=== PATIENT | female | born 1980 | race Caucasian/White ===

== ENCOUNTER 2019-01-03 11:11 | Emergency (ER) | payer MEDICAID ==
[~2019-01-03] VITALS: Ht 167.6 cm; Wt 131.8 kg
[2019-01-03 11:26] VITALS: Ht 167.6 cm; Wt 131.8 kg
[2019-01-03] MEDS ORDERED: NORMODYNE / TR100 MG PO (11:27)
[2019-01-03] MEDS ORDERED: ALDOMET250 MG PO (15:42)
[2019-01-03 15:54] VITALS: BP 130/77
[2019-01-04] MEDS ORDERED: VISTARIL25 MG PO (23:42)
== END 2019-01-03 15:54 | disposition home or self-care (01) ==
LOC: D.ER 11:11
DX: O26.891 Other specified pregnancy related conditions, first trimester (principal); Z3A.11 11 weeks gestation of pregnancy; T44.8X5A Adverse effect of centrally-acting and adrenergic-neuron-blocking agents, initial encounter; Y92.89 Other specified places as the place of occurrence of the external cause

== ENCOUNTER 2019-01-04 22:22 | Emergency (ER) | payer MEDICAID ==
[~2019-01-04 22:22] MED LIST: ALDOMET250 MG PO; NORMODYNE / TR100 MG PO
[2019-01-04 22:31] VITALS: BMI 46.9
[2019-01-04] MEDS ORDERED: VISTARIL25 MG PO (23:42)
[2019-01-04 23:57] VITALS: BP 165/74
== END 2019-01-04 23:58 | disposition home or self-care (01) ==
LOC: D.ER 22:22
DX: O26.891 Other specified pregnancy related conditions, first trimester (principal); Z3A.11 11 weeks gestation of pregnancy; R21 Rash and other nonspecific skin eruption

== ENCOUNTER → 2019-05-14 08:36 | Outpatient (CLI) | payer MEDICAID ==
[~2019-05-14 08:36] MED LIST changes: +HYDROCODON-ACE1 EA10 PO; +IBUPROFEN600 MG PO; +PRENAVITE1 TAB PO; +VISTARIL25 MG PO
== END | disposition home or self-care (01) ==
LOC: D.LDO 08:36
PROVIDERS: ATTEND Obstetrics & Gynecology
DX: O16.9 Unspecified maternal hypertension, unspecified trimester (principal); Z3A.00 Weeks of gestation of pregnancy not specified

== ENCOUNTER → 2019-05-17 14:04 | Outpatient (CLI) | payer MEDICAID | END | disposition home or self-care (01) | LOC: D.LDO 14:04 | PROVIDERS: ATTEND Student in an Organized Health Care Education/Training Program | DX: O16.9 Unspecified maternal hypertension, unspecified trimester (principal) ==

== ENCOUNTER → 2019-05-21 14:07 | Outpatient (CLI) | payer MEDICAID | END | disposition home or self-care (01) | LOC: D.LDO 14:07 | PROVIDERS: ATTEND Obstetrics & Gynecology | DX: O26.893 Other specified pregnancy related conditions, third trimester (principal); Z3A.31 31 weeks gestation of pregnancy ==

== ENCOUNTER → 2019-06-23 18:06 | Outpatient (CLI) | payer MEDICAID ==
[2019-06-23 18:41] LABS: APPEARANCE CLEAR (CLEAR); BILIRUBIN NEGATIVE (NEGATIVE); COLOR STRAW (YELLOW); GLUCOSE NEGATIVE (NEGATIVE); KETONE NEGATIVE (NEGATIVE); NITRITE NEGATIVE (NEGATIVE); PROTEIN NEGATIVE (NEGATIVE); SPECIFIC GRAVITY 1.005 (1.005-1.020); UROBILINOGEN NORMAL (NORMAL)
== END | disposition home or self-care (01) ==
LOC: D.LDO 18:06
PROVIDERS: ATTEND Obstetrics & Gynecology
DX: O26.853 Spotting complicating pregnancy, third trimester (principal); Z3A.36 36 weeks gestation of pregnancy; R10.9 Unspecified abdominal pain

== ENCOUNTER 2019-07-02 16:37 | Inpatient (IN) | payer MEDICAID ==
[~2019-07-02] VITALS: Ht 167.6 cm; Wt 141.1 kg
[~2019-07-02 16:37] MED LIST changes: -HYDROCODON-ACE1 EA10 PO; -IBUPROFEN600 MG PO; -PRENAVITE1 TAB PO
[2019-07-02 18:06] LABS: ALKALINE PHOSPHATASE 164 U/L (46-116); BILIRUBIN - DIRECT 0.07 mg/dL (0.00-0.30); BILIRUBIN - INDIRECT 0.32 mg/dL (0.00-1.00); BILIRUBIN - TOTAL 0.39 mg/dL (0.2-1.3); CALC OSMOLALITY 270 mosm/kg (275-300); CARBON DIOXIDE 23.5 mmol/L (21.0-32.0); CHLORIDE - SERUM 104 mmol/L (98-107); GLUCOSE 77 mg/dL (74-106); POTASSIUM - SERUM 4.2 mmol/L (3.5-5.1); PROTEIN - SERUM 6.2 g/dL (6.4-8.2); SODIUM 136 mmol/L (136-145); UREA NITROGEN 12 mg/dL (7-18)
[2019-07-02 18:07] LABS: BASOPHILS 0.3 % (0-2); EOSINOPHILS 2.3 % (0-7); HEMOGLOBIN 11.1 g/dL (12-16); IMMATURE GRANULOCYTES 0.5 % (0-5); LYMPHOCYTES 25.5 % (15-50); MCH 28.7 pg (26.0-34.0); MCHC 31.7 g/dL (31.0-37.0); MCV 90.4 fL (80.0-100.0); MEAN PLATELET VOLUME 9.7 fL (7.4-10.4); MONOCYTES 8.5 % (2-11); NEUTROPHILS 62.9 % (40-80); RBC 3.87 10x6/uL (4.00-5.40); RDW 14.4 % (11.5-14.5); WBC 9.1 10x3/uL (4.8-10.8)
[2019-07-02 18:08] LABS: PLATELET COUNT 207 10x3/uL (130-400)
[2019-07-02 18:16] LABS: ALBUMIN 2.6 g/dL (3.4-5.0); ALT (SGPT) 22 U/L (10-68); CREATININE - SERUM 0.7 mg/dL (0.6-1.3); eGFR NON AFRICAN AMERICAN > 90 mL/min (90-120)
[2019-07-02 19:45] LABS: APPEARANCE CLEAR (CLEAR); BILIRUBIN NEGATIVE (NEGATIVE); COLOR YELLOW (YELLOW); GLUCOSE NEGATIVE (NEGATIVE); KETONE NEGATIVE (NEGATIVE); NITRITE NEGATIVE (NEGATIVE); PROTEIN NEGATIVE (NEGATIVE); UROBILINOGEN NORMAL (NORMAL)
[2019-07-03 00:40] VITALS: BP 108/63; BMI 47.0
[2019-07-03 00:54] LABS: HEMATOCRIT 35.7 % (36.0-48.0); HEMOGLOBIN 11.5 g/dL (12-16); MCH 28.7 pg (26.0-34.0); MCHC 32.2 g/dL (31.0-37.0); MEAN PLATELET VOLUME 9.8 fL (7.4-10.4); RBC 4.01 10x6/uL (4.00-5.40); RDW 14.3 % (11.5-14.5); WBC 8.7 10x3/uL (4.8-10.8)
[2019-07-03] MEDS ORDERED: PRENAVITE1 TAB PO (01:17)
[2019-07-03 01:19] VITALS: BP 125/72; Ht 167.6 cm; Wt 141.1 kg
[2019-07-04] VITALS (8 sets, daily range): BP systolic 118–145; BP diastolic 60–83
[2019-07-04 08:11] LABS: RAPID PLASMA REAGIN Non Reactive (Non Reactive)
--- NOTE | 2019-07-04 12:12 | NUR ---
RECEIVED PT FROM VIA BED TO ROOM 1220. BED LOCKED AND PLACED IN LOW POSITION. VSS. FUNDUS FIRM AT U/U. RUBRA LOCHIA MOD AMT. NO CLOTS NOTED. ABDOMINAL DRESSING DRY WITHOUT DRAINAGE NOTED. NEG HOMANS' SIGN. PPP. MILD NON-PITTING EDEMA NOTED TO BLE. SCDS ON BLE. PUMP ON. PARSONS TO GRAVITY DRAINING DARK, YELLOW URINE. PIV SITE CLEAR TO RIGHT HAND. NS WITH PITOCIN INFUSING AT 125 ML/HR. PT C/O INCISIONAL PAIN OF "5" ON 0-10 PAIN SCALE. ICE PACK TO INCISION. SR UP X 2. CALL LIGHT IN REACH.
--- NOTE | 2019-07-04 12:24 | NUR ---
DILAUDID CARTOGRAPHY SUPERVISOR STARTED ORDERED. PT INSTRUCTED ON MED AND USE OF BUTTON. VERBALIZES AND DEMONSTRATES UNDERSTANDING.
--- NOTE | 2019-07-04 13:02 | NUR ---
FUNDUS IS FIRM, MIDLINE 3U. GARALND PAD IN PLACE. NO CLOTS PRESENT.WILL CONTINUE TO MONITOR.
--- NOTE | 2019-07-04 13:15 | NUR ---
PT SITTING UP IN BED. CONSUMING CLEAR, LIQUID DIET. TOLERATING WELL. DENIES C/O OR NEEDS.
--- NOTE | 2019-07-04 15:00 | NUR ---
FUNDUS FIRM AT U/1. RUBRA LOCHIA MOD AMT. NO CLOTS EXPRESSED. PERICARE DONE. CHUX, TOWELS AND PINK PAD CHANGED. PT MOVES WELL IN BED PER SELF. ABDOMINAL DRESSING DRY WITH SMALL AMT OF LOCHIA NOTED TO LOWER AREA OF DRESSING. FRESH ICE PACK TO INCISION. PT REPOSITIONS IN BED. ZIGGY ACTIVITY WELL.
--- NOTE | 2019-07-04 15:08 | NUR ---
BABY DELIVERED AT [address] AT 1025 FATHER IN ROOM DURING PROCEDURE CORD BLOOD DRAWN OFF FIELD AND SENT TO LAB ABG DRAWN AND GIVEN TO RESPIRATORY
--- NOTE | 2019-07-04 15:14 | NUR ---
TORADOL 30 MG GIVEN SIVP OVER 2 MINUTES. PT INSTRUCTED ON MED. VERBALIZES UNDERSTANDING.
--- NOTE | 2019-07-04 17:30 | NUR ---
PT SITTING UP IN BED. HOLDS WITH MUCH WARMTH SHOWN. DENIES C/O OR NEEDS.
--- NOTE | 2019-07-04 18:26 | NUR ---
FUNDUS FIRM AT U/1. RUBRA LOCHIA SMALL AMT. PERIPADS CHANGED. ABDOMINAL DRESSING DRY WITHOUT DRAINAGE. FRESH ICE PACK TO INCISION. I/O COMPLETED.
--- NOTE | 2019-07-04 19:25 | NUR ---
PT IS RESTING QUIETLY IN BED. PT IS S/P C SECTION. G3 P 2. HER HEART SOUNDS ARE WNL. HER LUNGS SOUND CLEAR, AND HER FUNDUS IS FIRM. SHE HAS AN IV IN THE LEFT HAND RUNNING AT 125 CC/HR. HER PARSONS CATHETER IS IN PLACE DRAINING DARK URINE. PT HAS BEEN INSTRUCTED TO DRINK ALOT OF WATER. INCISION IS COVERED WITH A LARGE WHITE DRESSING. NO DRAINAGE NOTED. HER FUNDUS IS FIRM. PT IS ENCOURAGED TO USE HER INCINTIVE SPIROMETER 10 TIMES EVERY HOUR SHE IS AWAKE. SHE IS WEARING HER SCD'S. PT STATES SHE IS PASSING GAS, BUT HAS NOT HAD A BM. SKIN IS WARM AND DRY. PT HAS PAIN RATED AT A 4-5. SHE STATES HER COCOA MILL OPERATOR PUMP IS NOT WORKING FOR HER. FOLLOWING.
--- NOTE | 2019-07-04 21:15 | NUR ---
PT STILL C/O PAIN. SHE STILL HAS HER MOVIE THEATER USHER PUMP AND SHE WAS GIVN TORADOL IV.
--- NOTE | 2019-07-04 22:31 | NUR ---
PAGED DR. REY AT 1374 AND HE ANSWERED AT 310. RECEIVED ORDERS THAT PT COULD EAT NOW, PT CAN GET UP, GET A CBC AT 5 AM 07/05/19, MOTRIN FOR PAIN AND NARCO 10 FOR PAIN WHEN THE HEAD MACHINE FEEDER PUMP IS REMOVED.
--- NOTE | 2019-07-04 23:00 | NUR ---
PARSONS CATHETER REMOVED. 350 ML OF DARK URINE OBTAINED. PT ENCOURAGED TO DRINK ALL SHE CAN. IV/FINGER WAVER REMOVED. PERCOCET 10 MG WAS GIVEN PO. PT WAS INSTRUCTED TO CALL NURSE WHEN SHE NEEDED TO GO TO THE BR AND TO NOT GET UP ALONE. THERE IS A HAT IN HER TOILET TO MEASURE THE NEXT THREE VOIDS.
[2019-07-05 00:25] VITALS: BP 110/70
--- NOTE | 2019-07-05 00:25 | NUR ---
PT AWAKE, VS OBTAINED, PT INST ON GETTING UP TO BR, PT VERBALIZES UNDERSTANDING, PT UP TO SIDE OF BED, PT AMB, GAIT STEADY, TO BR, PT VOIDED 500 MLS OF BLOOD TINGED URINE BY SELF WITH NO DIFFICULTY, ASSISTED PT WITH GARLAND CARE WITH WET WARM WASH CLOTHS, GARLAND PAD AND PANTIES, PT BACK TO BED, PT REQUESTED AND SERVED RICE KRISPEYS CEREAL, CHOCOLATE PUDDING, AND FRESH H20, SCD'S RECONNECTED AND WORKING PROPERLY, PT DENIES FURTHER NEEDS AT THIS TIME, FOB ASLEEP IN RECLINER
--- NOTE | 2019-07-05 02:32 | NUR ---
PT GOT UP TO BR. NURSE WATCHED HER GET TO THE TOILET AND PT GOT BACK INTO BED ALONE. SHE DID HAVE A LITTLE PAIN ASSOCIATED WITH THIS. SHE VOIDED 600 ML DARK URINE THAT LOOKS SOMEWHAT LEATHER STRIPPING MACHINE OPERATOR THAN BEFORE. SHE WAS ENCOURAGED TO CONT. TO DRINK FLUIDS. SHE SLEEPS WITH THE HOB AT 90 DEGREES.
[2019-07-05 04:05] VITALS: BP 121/75
--- NOTE | 2019-07-05 04:29 | NUR ---
PT AUDIT CONTROL CLERK LIGHT, C/O INC PAIN AND CRAMPING, ADM MOTRIN AND NORCO PER MD ORDERS, SEE EMAR, PT UP TO BR WITH ASSISTANCE, VOIDED WITH NO DIFFICULTY, ASSISTED PT WITH GARLAND PAD AND PANTIES, PT BACK TO BED, SCD'S RECONNECTED AND WORKING PROPERLY, VS WERE OBTAINED PER ELLYN BOGGS RN, PT DENIES FURTHER NEEDS, FOB ASLEEP IN RECLINER
[2019-07-05 06:41] LABS: HEMATOCRIT 30.6 % (36.0-48.0); HEMOGLOBIN 10.4 g/dL (12-16); LYMPHOCYTES 15.9 % (15-50); MCH 29.7 pg (26.0-34.0); MCV 87.4 fL (80.0-100.0); MEAN PLATELET VOLUME 9.5 fL (7.4-10.4); NEUTROPHILS 72.9 % (40-80); RDW 14.1 % (11.5-14.5); WBC 6.5 10x3/uL (4.8-10.8)
[2019-07-05 06:52] LABS: PLATELET COUNT 222 10x3/uL (130-400)
--- NOTE | 2019-07-05 08:00 | NUR ---
SLEEPING ON FOLD OUT COUCH WITH INFANT ON COUCH BESIDE HIM. INSTRUCTED PATIENT AND THAT SLEEPING WITH BABY IN THE BED IS NOT SAFE AND, WHILE IN HOSPITAL, BABY MUST BE PLACED IN THE CRIB WHEN CAREGIVERS ARE SLEEPING. PATIENT STATES UNDERSTANDING. PLACED IN OPEN CRIB.
--- NOTE | 2019-07-05 08:56 | NUR ---
VITAL SIGNS TAKEN. PT. REQUESTING PAIN MED. SITTING UP ON BEDSIDE.
[2019-07-05 08:58] VITALS: BP 121/79
--- NOTE | 2019-07-05 10:15 | NUR ---
UP TO SHOWER. LINENS CHANGED.
--- NOTE | 2019-07-05 10:45 | NUR ---
PT BACK TO BED. IV FLUSHED EASILY WITHOUT RESISTANCE. NO PAIN, REDNESS OR SWELLING AT SITE. SCD'S APPLIED WHILE PATIENT IS RESTING IN BED. ENCOURAGED TO AMBULATE IN HALLWAYS 2-3 TIMES TODAY.
--- NOTE | 2019-07-05 12:09 | NUR ---
PT C/O ABDOMINAL PAIN OF "5" ON 0-10 PAIN SCALE. STATES PASSING GAS. MYLICON 80 MG GIVEN TO PT. PT INSTRUCTED ON MED. VERBALIZES UNDERSTANDING.
[2019-07-05 13:30] VITALS: BP 140/74
--- NOTE | 2019-07-05 13:30 | NUR ---
SITTING UP IN BED WITH BABY IN ARMS. REQUESTING PAIN MEDICINE.
--- NOTE | 2019-07-05 15:00 | NUR ---
SITTING UP IN BED. S/O AT BEDSIDE. IN ROOM IN OPEN CRIB. NO COMPLAINTS OR NEEDS AT THIS TIME.
--- NOTE | 2019-07-05 16:15 | NUR ---
RESTING IN BED. S/O AT BEDSIDE. IN OPEN CRIB. NO COMPLAINTS AT THIS TIME.
--- NOTE | 2019-07-05 17:40 | NUR ---
RESTING IN BED. C/O PAIN AND REQUESTING MEDICATION. S/O AT BEDSIDE.
--- NOTE | 2019-07-05 17:50 | NUR ---
C/O DISCOMFORT AT IV SITE. TOLERATING REGULAR DIET AND PO FLUIDS WELL. PO PAIN MEDICATION PROVIDING GOOD PAIN RELIEF. VOIDING WITHOUT DIFFICULTY. AMBULATING AND PASSING GAS. IV D/C'D. CATHETER INTACT. PRESSURE APPLIED TO SITE. 2X2 AND BANDAGE IN PLACE OVER SITE.
--- NOTE | 2019-07-05 18:22 | NUR ---
RESTING IN BED. S/O AT BEDSIDE. NO COMPLAINTS OR NEEDS AT THIS TIME.
--- NOTE | 2019-07-05 18:45 | NUR ---
DID NOT RECEIVE RELIEF FROM PAIN MEDS. POSITIONED ON LEFT SIDE. STATES IS PASSING GAS. MYLICON GIVEN.
--- NOTE | 2019-07-05 19:30 | NUR ---
SAW PT AT BEDSIDE. INTRODUCED SELF HER NURSE FOR THE NIGHT. SHE HAS NO C/O OR NEEDS AT THIS TIME. SHE WAS TOLD THAT I WOULD BE BACK IN A FEW MINUTES TO DO HER FULL ASSESSMENT.
[2019-07-05 20:00] VITALS: BP 133/77
--- NOTE | 2019-07-05 20:00 | NUR ---
PT RESTING IN BED QUIETLY. SHE HAS BEEN UP TODAY WALKING AROUND THE UNIT. HEART TONES ARE WNL. LUNGS ARE CLEAR. CAN HEAR SOME BOWEL SOUNDS. HER INCISION IS CLEAN AND DRY WITH NO DRAINAGE. SHE IS NOT WEARING SCD'S DUE TO AMBULATING WELL. IV SALINE LOCK HAS BEEN TAKEN OUT. PT IS TOLERATING PO MEDS WELL. HER LOCHIA IS SMALL AMT. SHE CONT. TO USE HER IS. PT VOICES NO C/O OR NEEDS.
--- NOTE | 2019-07-05 21:00 | NUR ---
PT FEELING OK. SHE HAS HER BABY AT THE BEDSIDE. NO C/O OR NEEDS AT THIS TIME.
--- NOTE | 2019-07-05 22:10 | NUR ---
PT IS RESTING QUIETLY WITHOUT C/O. BABY IS IN THE ROOM. PT STATES SHE IS TIRED. SHE IS GETTING UP AD NA IN ROOM TO THE BR.
[2019-07-06] VITALS: BP 131/74
--- NOTE | 2019-07-06 00:20 | NUR ---
PT REQUESTED PAIN MEDS. SHE HAS NOT HAD ANY MEDS FOR PAIN ALL SHIFT. SHE WAS GIVEN A MOTRIN 600 MG PO AND PERCOCET 10 MG FOR PAIN. SHE IS HOPING SHE CAN REST AT THIS TIME. BABY IS STILL IN THE ROOM WITH PT.
--- NOTE | 2019-07-06 02:05 | NUR ---
PT IS RESTING WELL. HER BABY HAS BEEN IN THE NURSERY SOME AND SHE HAS RESTED. NO C.O
[2019-07-06 04:15] VITALS: BP 121/76
--- NOTE | 2019-07-06 06:32 | NUR ---
PT WAS GIVEN PO NORCO 1O AND MOTRIN 600 MG. PT DID NOT GET MUCH REST LAST NIGHT. SHE IS TRYING TO SLEEP NOW.
--- NOTE | 2019-07-06 07:30 | NUR ---
ASSUMED CARE OF THIS PATIENT AT THIS TIME. LAYING IN BED AWAKE. WILL COMPLETE SHIFT ASSESSMENT AFTER BREAKFAST. SMOKER-DECLINES SMOKING CESSATION REFERRAL BUT DESIRE PRESCRIPTION FOR NICODERM PATCH. SAYS SHE ONLY TAKES ALDOMET AT HOME. INFORMED IT WAS ORDERED FOR THREE TIMES A DAY. SAYS SHE WILL TAKE WHEN HER BP IS UP. WILL INFORM MD. A+ RUBELLA IMMUNE, GBS +, WILL CHECK TDAP STATUS. SIDE RAILS UP X 2, CALL LIGHT IN REACH. UP AD NA.
--- NOTE | 2019-07-06 07:42 | NUR ---
DR REY VISITED PATIENT. NOTIFIED THAT PATIENT HAS BEEN TAKING ALDOMET ONLY ONCE PER DAY PER PT REQUESTED. ALSO NOTIFIED MD THAT PT DESIRES NICODERM PATCH PRESCRIPTION PER MD PT CAN GET THIS OTC. ANTICIPATE DC HOME TODAY.
[2019-07-06 08:20] VITALS: BP 132/83
[2019-07-06] MEDS ORDERED: IBUPROFEN600 MG PO (09:40)
[2019-07-06] MEDS ORDERED: HYDROCODON-ACE1 EA10 PO (09:41)
[2019-07-06 10:30] VITALS: BP 143/93
--- NOTE | 2019-07-06 10:32 | NUR ---
C/O 10/08 HEADACH AND REQUESTED BLOOD PRESSURE MEDICATION. BP 148/93. ALDOMET 250 MG GIVEN PO AT THIS TIME. DECLINED 0900 DOSE, ANTICIPATED GIVING 1500 DOSE. PATIENT NORMALLY TAKES ONE TIME A DAY AT HOME, IN THE AM. DISCUSSED BLOOD PRESSURE ADMINISTRATION AND IMPORTANCE OF TAKING DIRECTED AND TRY TO TAKE CONSISTENTLY SAME TIMES EVERY DAY. VERBALIZED UNDERSTANDING. NO ADDITONAL REQUESTS. DECLINED TDAP. PLAN DC HOME WHEN INFANT IS DC'D.
--- NOTE | 2019-07-06 11:36 | NUR ---
SITTING UP IN BED. WAITING ON DC ON INFANT. REQUESTED BAG OF CHIPS. SAYS HER GARZA IS GONE 0. NO ADDITONAL REQUESTS.
--- NOTE | 2019-07-06 13:19 | NUR ---
REQUESTED PAIN MEDICATION FOR 4/10 ABDOMINAL CRAMPING. MOTRIN 600 MG AND NORCO 10 MG GIVEN PO AFTER DISCUSSING PAIN MANAGEMENT OPTIONS WITH PT. SHE OPTED FOR BOTH MOTRIN AND NORCO THEY HELPED PAIN EARLIER.
--- NOTE | 2019-07-06 13:27 | NUR ---
DC TEACHING COMPLETED. VERBAL AND WRITTEN INFORMATION GIVEN ON POST OP CARE, S&S INFECTION, DANGER SIGNS, PP DEPRESSION, MEDICATION ADMINISTRATION, BREAST CARE/ BOTTLE FEEDING, BP EVALUATION AND FOLLOW-UP. NO SPECIFIC QUESTIONS ASKED AT THIS TIME. VISITOR X 1 IN ROOM. WAITING ON DC HOME. SIDE RAILS UP X 2, CALL LIGHT IN REACH.
--- NOTE | 2019-07-06 13:52 | NUR ---
REQUESTED SPRITE AND ICE. VISITORS X 2 IN ROOM. NO ADDITIONAL REQUESTS.
--- NOTE | 2019-07-06 15:07 | NUR ---
DC VIA WHEELCHAIR BY Jessica SPRINGER RN. ALL BELONGINGS REMOVED FROM ROOM. IN CARSEAT. SMILING. REMINDED TO CALL FOR F/U APPOINTMENT FOR NEXT TUESDAY. VERBALIZED UNDERSTANDING. FOB DRIVING.
== END 2019-07-06 15:09 | disposition home or self-care (01) | DRG 785 ==
LOC: D.LDO 16:37 → D.LD 22:15 → D.WS 22:15 → D.LD 23:22 → D.SDCHOLD 07-03 11:17 → D.WS 07-04 12:33
PROVIDERS: ADMIT Obstetrics & Gynecology; ATTEND Obstetrics & Gynecology
PROC: 0UB70ZZ Excision of Bilateral Fallopian Tubes, Open Approach (ICD-10-PCS; 2019-07-04)
PROC: 10D00Z1 Extraction of Products of Conception, Low, Open Approach (ICD-10-PCS; principal; 2019-07-04 12:00)
DX: O99.824 Streptococcus B carrier state complicating childbirth (principal); Z3A.37 37 weeks gestation of pregnancy; Z37.0 Single live birth; O13.4 Gestational [pregnancy-induced] hypertension without significant proteinuria, complicating childbirth; O99.214 Obesity complicating childbirth; Z30.2 Encounter for sterilization; O36.8330 Maternal care for abnormalities of the fetal heart rate or rhythm, third trimester, not applicable or unspecified; Z37.9 Outcome of delivery, unspecified

== ENCOUNTER 2020-12-12 20:04 | Emergency (ER) | payer BC ==
[~2020-12-12] VITALS: Ht 167.6 cm; Wt 138.6 kg
[~2020-12-12 20:04] MED LIST changes: +HYDROCODON-ACE1 EA10 PO; +IBUPROFEN600 MG PO; +PRENAVITE1 TAB PO
[2020-12-12 20:10] VITALS: Ht 167.6 cm; Wt 138.6 kg
[2020-12-12] MEDS ORDERED: [UNRECOGNIZED DRUG - REMARK] (20:11)
[2020-12-12 20:35] LABS: BASOPHILS 0.5 % (0-2); EOSINOPHILS 3.5 % (0-7); HEMATOCRIT 42.7 % (36.0-48.0); HEMOGLOBIN 13.6 g/dL (12-16); IMMATURE GRANULOCYTES 0.2 % (0-5); LYMPHOCYTE ABS# 2.26 10x3/uL (1.18-3.74); LYMPHOCYTES 20.2 % (15-50); MCH 26.9 pg (26.0-34.0); MCHC 31.9 g/dL (31.0-37.0); MCV 84.6 fL (80.0-100.0); MEAN PLATELET VOLUME 9.9 fL (7.4-10.4); MONOCYTES 8.6 % (2-11); NEUTROPHIL ABS# 7.49 10x3/uL (1.56-6.13); RBC 5.05 10x6/uL (4.00-5.40); RDW 14.8 % (11.5-14.5); WBC 11.2 10x3/uL (4.8-10.8)
[2020-12-12 20:40] LABS: PLATELET COUNT 474 10x3/uL (130-400)
[2020-12-12 20:55] LABS: HCG SERUM NEGATIVE (NEGATIVE)
[2020-12-12 20:56] LABS: APTT 31.8 SECONDS (22.8-39.4); INR 1.18 (0.85-1.17); PROTIME 13.9 SECONDS (11.6-15.0)
[2020-12-12 20:58] LABS: CALC OSMOLALITY 280 mosm/kg (275-300); CALCIUM 9.5 mg/dL (8.5-10.1); CARBON DIOXIDE 27.6 mmol/L (21.0-32.0); CHLORIDE - SERUM 104 mmol/L (98-107); CREATININE - SERUM 1.1 mg/dL (0.6-1.3); GLUCOSE 98 mg/dL (74-106); POTASSIUM - SERUM 4.5 mmol/L (3.5-5.1); SODIUM 139 mmol/L (136-145); UREA NITROGEN 22 mg/dL (7-18); eGFR NON AFRICAN AMERICAN 59 mL/min (90-120)
[2020-12-12 21:17] LABS: ALBUMIN 3.2 g/dL (3.4-5.0); ALKALINE PHOSPHATASE 57 U/L (30-120); ALT (SGPT) 60 U/L (10-68); BILIRUBIN - TOTAL 0.88 mg/dL (0.2-1.3); CKMB 2.5 U/L (0.0-3.6); CREATINE KINASE 71 UL (21-215); PRO BNP 5017 pg/mL (0-125); PROTEIN - SERUM 6.7 g/dL (6.4-8.2)
[2020-12-12 21:19] LABS: TROPONIN-I < 0.017 ng/mL (0.000-0.060)
[2020-12-12] MEDS ORDERED: KLOR-CON 1010 MEQ PO (23:47)
[2020-12-12] MEDS ORDERED: FUROSEMIDE20 MG PO (23:47)
[2020-12-13 00:37] VITALS: BP 163/97
== END 2020-12-13 00:37 | disposition home or self-care (01) ==
LOC: D.ER 20:04
PROVIDERS: Emergency Medicine
DX: I11.0 Hypertensive heart disease with heart failure (principal); I50.9 Heart failure, unspecified; R06.09 Other forms of dyspnea; R60.9 Edema, unspecified